=== PATIENT | female | born 1980 | race Caucasian/White ===

== ENCOUNTER 2018-09-25 18:20 | Emergency (ER) | payer MEDICAID, OTHER ==
[~2018-09-25] VITALS: Ht 144.8 cm; Wt 45.5 kg
[2018-09-25 18:38] VITALS: Ht 144.8 cm; Wt 45.5 kg
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
[2018-09-26 07:41] VITALS: BP 115/76; PULSE 100; RESP 20
== END 2018-09-26 08:25 | disposition home or self-care (01) ==
LOC: E/R 18:20 → EDBD 18:20 → E/R 09-26 08:25
DX: F10.920 Alcohol use, unspecified with intoxication, uncomplicated (principal); I10 Essential (primary) hypertension; F17.210 Nicotine dependence, cigarettes, uncomplicated; R51 Headache; Y04.8XXA Assault by other bodily force, initial encounter
CPT/HCPCS: 70450